=== PATIENT | male | born 1990 | race Caucasian/White ===

== ENCOUNTER 2018-01-20 16:21 | Emergency (ER) | payer BC, OTHER ==
[~2018-01-20] VITALS: Ht 177.8 cm; Wt 72.6 kg
[2018-01-20] MEDS ORDERED: PROVENTIL HFA6.7 G1 INH (17:45)
[2018-01-20] MEDS ORDERED: BACTROBAN CREAM30 G1 TOP (17:45)
[2018-01-20] MEDS ORDERED: TESSALON PERLE100 MG PO (17:45)
[2018-01-20] MEDS ORDERED: DOXYCYCLINE 10100 MG PO (17:45)
[2018-01-20 18:17] VITALS: BP 114/66
== END 2018-01-20 18:18 | disposition home or self-care (01) ==
LOC: ER 16:21
DX: L02.416 Cutaneous abscess of left lower limb (principal); R05 Cough; F17.210 Nicotine dependence, cigarettes, uncomplicated